=== PATIENT | male | born 1960 | race Caucasian/White ===

== ENCOUNTER 2018-12-24 18:58 | Emergency (ER) | payer SELFPAY ==
[~2018-12-24] VITALS: Ht 170.2 cm; Wt 95.1 kg
[2018-12-24 19:15] VITALS: Ht 170.2 cm; Wt 95.1 kg
[2018-12-24] MEDS ORDERED: SODIUM CHLORIDE 0.9% 1L BAG IV* STA (19:20)
[2018-12-24] MEDS ORDERED: ACETAMINOPHEN 500 MG TAB PO STA (19:40)
[2018-12-24] MEDS ORDERED: IBUPROFEN 800 MG TAB PO ONE (20:00)
[2018-12-24] MEDS ORDERED: CEFEPIME 2GM/50 ML (PMX) 50 ML IVPB STA (20:02)
[2018-12-24] MEDS ORDERED: VANCOMYCIN 1 GM (PMX) 250 ML IVPB ONE (20:30)
--- NOTE | 2018-12-24 21:32 | ERD ---
ER Documentation Chief Complaint Chief Complaint fever w/ HAs x 2-3 days; just came from [place] HPI This is a 58-year-old male with no past medical history that presents to the emergency department complaining of 3 days of a tactile fever shaking and chills. The patient states he is been having a bandlike headache. He states is not the worst headache of his life. He denies any neck pain. The patient lives in [place]. He arrived from [place] 1 week ago and is staying with family. He has been taking Tylenol. This will improve his fevers and then spontaneously resolves. He states he has had no cough. He has no shortness of breath. He said no runny nose. He does complain of frequent urination but denies dysuria u rgency. The patient stated he is concerned that he could have dengue fever given that there was an outbreak in [place]. He denies any rashes. He denies any ocular pain or changes in vision. He has no nausea or vomiting. He denies any abdominal pain. He does not recall being bit by a mosquito the patient stated he has had no epistaxis, no gingival bleeding. No hemoptysis or hematemesis. No hematuria. No blood present within his stool. ROS All systems reviewed and are negative except as per history of present illness. Allergies Allergies: Coded Allergies: No Known Allergy (Unverified , 12/24/18) PMhx/Soc History of Surgery: Yes (HERNIA) Hx Miscellaneous Medical Probl: Yes (GASTRITIS) Hx Alcohol Use: Yes Hx Substance Use: No Hx Tobacco Use: No Smoking Status: Unknown if ever smoked Physical Exam Vitals Vital Signs Date Temp Pulse Resp B/P (MAP) Pulse Ox O2 O2 Flow FiO2 Time Delivery Rate 12/24/18 94 24 172/117 97 Nasal 20:24 (135) Cannula 12/24/18 94 22 172/117 97 Nasal 2.0 20:22 (135) Cannula 12/24/18 102.0 19:51 12/24/18 102.0 19:50 12/24/18 Nasal 19:35 Cannula 12/24/18 102.7 109 20 170/101 95 19:15 (124) Physical Exam Constitutional:Well-developed. Well-nourished. HEENT:Normocephalic. Atraumatic.Pupils were equal round reactive to light. Dry mucous membranes.No tonsillar exudates. Neck: No nuchal rigidity. No lymphadenopathy. No posterior cervical spine tenderness or step-offs. Respiratory: Not using accessory muscles of respiration.Lungs were clear to auscultation bilaterally. No rhonchi. No rales. No wheezing. Cardiovascular: Regular rate regular rhythm.No murmurs. No rubs were appreciated.S1, S2 normal. Distal pulses are palpable 2+ bilaterally. GI: Abdomen was soft. Nontender. Non Distended. No pulsatile abdominal masses or bruits. No rebound. No guarding. Bowel sounds were present and normal. Muscle skeletal: Full range of motion of both the upper and lower extremities bilaterally.Normal muscle tone.No assymetrical calf tenderness or swelling. Skin: No petechia, no purpura. No lesions on the palms or the soles of the feet. No maculopapular rash. NEURO: Patient was alert, awake, orientated x3.No facial droop. Gait observed and normal with no ataxia.Speech had regular rate and rhythm. No focal neurological deficits. Result Diagram: 12/24/18192312/24/181923 Results 24 hrs Laboratory Tests Test 12/24/18 19:23 12/24/18 19:24 12/24/18 19:50 12/24/18 21:06 POC Venous 0.9 mmol/L Lactate White Blood Count 3.8 10^3/ul Red Blood Count 5.38 10^6/ul Hemoglobin 15.3 g/dl Hematocrit 46.2 % Mean Corpuscular 85.9 fl Volume Mean Corpuscular 28.4 pg Hemoglobin Mean Corpuscular 33.1 g/dl Hemoglobin Concen t Red Cell 14.1 % Distribution Width Platelet Count 56 10^3/UL Mean Platelet 12.5 fl Volume Immature 0.500 % Granulocytes % Neutrophils % 73.8 % Segmented 54 % Neutrophils % (Manual) Band Neutrophils 21 % % (Manual) Lymphocytes % 15.5 % Lymphocytes % 14 % (Manual) Reactive 1 % Lymphocytes % (Manual) Monocytes % 8.7 % Monocytes % 6 % (Manual) Eosinophils % 0.5 % Eosinophils % 2 % (Manual) Basophils % 1.0 % Basophils % 2 % (Manual) Nucleated Red 0.0 /100WBC Blood Cells % Immature 0.020 10^3/ul Granulocytes # Neutrophils # 2.8 10^3/ul Neutrophils # 2.1 10^3/ul (Manual) Band Neutrophils 0.7 10^3/ul # Lymphocytes 0.5 10^3/ul (Manual) Lymphocytes # 0.6 10^3/ul Reactive 0.0 10^3/ul Lymphocytes # Monocytes # 0.3 10^3/ul Monocytes # 0.2 10^3/ul (Manual) Eosinophils # 0.0 10^3/ul Basophils # 0.0 10^3/ul Basophils # 0.0 10^3/ul (Manual) Nucleated Red 0.0 10^3/ul Blood Cells # Platelet Estimate DECREASED Giant Platelets 5 % Prothrombin Time 13.0 Sec Prothrombin Time 1.0 Ratio INR International 0.97 Normalized Ratio Activated 37.7 Sec Partial Thrombopl ast Time Sodium Level 136 mmol/L Potassium Level 4.3 mmol/L Chloride Level 101 mmol/L Carbon Dioxide 25 mmol/L Level Anion Gap 10 Blood Urea 13 mg/dl Nitrogen Creatinine 1.10 mg/dl Est Glomerular > 60 mL/min Filtrat Rate mL/min Glucose Level 125 mg/dl Calcium Level 9.0 mg/dl Total Bilirubin 0.3 mg/dl Direct Bilirubin 0.00 mg/dl Indirect 0.3 mg/dl Bilirubin Aspartate Amino 67 IU/L Transf (AST/SGOT) Alanine 43 IU/L Aminotransferase (ALT/SGPT) Alkaline 82 IU/L Phosphatase Troponin I < 0.012 ng/ml Total Protein 7.9 g/dl Albumin 4.4 g/dl Globulin 3.50 g/dl Albumin/Globulin 1.25 Ratio Urine Color YELLOW Urine Clarity SLIGHTLY CLOUDY Urine pH 6.0 Urine Specific 1.021 [place] Urine Ketones TRACE mg/dL Urine Nitrite NEGATIVE mg/dL Urine Bilirubin NEGATIVE mg/dL Urine 1+ mg/dL Urobilinogen Urine Leukocyte NEGATIVE Rickey/ul Esterase Urine Microscopic 25 /HPF RBC Urine Microscopic 1 /HPF WBC Urine Hemoglobin NEGATIVE mg/dL Urine Glucose NEGATIVE mg/dL Urine Total 1+ mg/dl Protein Lactic Acid Level 1.1 mmol/L Current Medications Medications Dose Sig/Dino Start Time Status Last (Trade) Ordered Route PRN Stop Time Admin Dose Reason Admin Sodium 2,850 ml BOLUS OVER 2 12/24/18 DC 12/24/18 Chloride HOURS STAT 19:20 19:33 (NS) IV* 12/24/18 19:21 1,000 mg ONCE STAT 12/24/18 DC 12/24/18 Acetaminophen PO 19:40 19:50 (Tylenol 12/24/18 19:45 Tab) Ibuprofen 800 mg ONCE ONCE 12/24/18 DC 12/24/18 (Motrin) PO 20:00 19:51 12/24/18 20:01 Cefepime HCl 50 ml @ ONCE STAT 12/24/18 DC 12/24/18 100 mls/hr IVPB 20:02 20:07 12/24/18 20:31 Vancomycin 250 ml @ ONCE ONCE 12/24/18 12/24/18 HCl 125 mls/hr IVPB 20:30 20:37 12/24/18 22:29 Sodium 1,000 ml @ Q1H STAT 12/24/18 12/24/18 Chloride 1,000 mls/hr IV 21:42 21:52 12/24/18 22:41 Ketorolac 30 mg ONCE STAT 12/24/18 DC 12/24/18 Tromethamine IV 21:42 21:53 (Toradol) 12/24/18 21:43 Procedures/MDM The patient presented to the emergency department with an acute single headache that presented within days of onset my differential diagnosis included but was not limited to meningitis, SAH, intracerebral hemorrhage, hypertensive encephalopathy, cranial artery dissection, cerebral venous sinus thrombosis, traumatic, acute sinusitis. The patient has no ocular symptoms to suggest temporal neuritis, acute narrow-angle glaucoma or pituitary apoplexy. The pat ient did not appear to have a toxic or metabolic etiology such as fever, hypoglycemia, high-altitude disease or carbon monoxide poisoning. This was not the patients worse headache of their life. The patient had a complete neurologic and fundoscopic exam performed by myself that was normal with no focal neurological deficits or retinal hemorrhage. The patient did have a CT scan of his head which showed no intracerebral hemorrhage mass-effect or midline shift. The patient had no nuchal rigidity. I discussed with the patient the possibility of doing a lumbar puncture however the patient stated he did not want this to be performed. My clinical suspicion was low for meningitis. I also indicated to the patient that I did not feel his symptoms were result of dengue fever and that there was no distinctive laboratory testing that could be immediately obtained in order to specifically diagnose a dengue virus infection. The patient did have a mild headache and fever but denied any nausea vomiting, retro-orbital pain. He had not experienced any hemorrhagic manifestations or arthralgias or rashes. He is a [place] in a mosquito borne area of dengue fever infection however he stated he did not have any mosquito bites. The patient stated this headache was not severe or distinct from other headaches and the history with the physical exam findings did not likely suggest SAH. Therefore, I did not feel it was clinically necessary to perform a lumbar puncture and CSF analysis. 12 Lead EKG tracing ordered and reviewed by myself showed: Normal sinus rhythm of 93 bpm and no arrhythmia. NE interval normal. QRS duration normal. No ST segment elevation No ST segment depression. No changes consistent with acute ischemia. Observation Note: Time: 4 hours Family Hx: No Hypertension Evaluation: Multiple exams showed improving symptoms and no evidence of warning signs of severe infection of dengue fever. The patient did have leukopenia with thrombocytopenia which could be findings consistent with dengue fever however again the patient did not have any signs of active bleeding. I had a lengthy discussion with the patient that I did feel he would benefit from being admitted for observation with further evaluation. However the patient stated he would prefer outpatient management. I did indicate this was appropriate given that he has a presumptive diagnosis of dengue in the absence of warning signs or coexisting conditions as stated above. Critical Care: Time: 65 minutes Treatments/Evaluations: Close monitoring and treatment of unstable vital signs, cardiorespiratory, and neurologic status, while maintaining tight balance of fluid, respiratory, and cardiac interventions. Time does not include performing any of the above billable procedures. Chest radiograph showed no evidence of pneumonia or infiltrates. Departure Diagnosis: Primary Impression: Fever Fever type: unspecified Qualified Codes: R50.9 - Fever, unspecified Additional Impression: Suspected dengue fever Condition: JENNA Rico MD Dec 24, 2018 21:32
[2018-12-24] MEDS ORDERED: KETOROLAC 30 MG INJ IV STA (21:42)
[2018-12-24] MEDS ORDERED: SOD CHLORIDE 0.9% 1,000 ML IV STA (21:42)
[2018-12-24] MEDS ORDERED: IBUP800T48 PO (22:18)
[2018-12-24] MEDS ORDERED: ACET500C5 PO (22:18)
[2018-12-24] MEDS ORDERED: CEPH-443 PO (22:50)
[2018-12-24 22:52] VITALS: BP 151/105; PULSE 75; RESP 17
== END 2018-12-24 22:53 | disposition home or self-care (01) ==
LOC: E/R 18:58
DX: R50.9 Fever, unspecified (principal); R51 Headache
CPT/HCPCS: 36415; 70450; 71045; 80053; 81001; 83605; 84484; 85025; 85610; 85730; 87040; 87086; 93005; 96374; 96375; 99285; J0692; J1885; J3370; J7030